=== PATIENT | male | born 1985 | race Caucasian/White ===

== ENCOUNTER 2020-06-22 20:31 | Emergency (ER) | payer OTHER ==
[~2020-06-22] VITALS: Ht 185.4 cm; Wt 74.8 kg
[2020-06-22] MEDS ORDERED: LANTUS SOL100 UNIT/1 SUB-Q (20:53)
[2020-06-22] MEDS ORDERED: APIDRA SOL100 UNIT/1 SUB-Q (20:53)
== END 2020-06-22 23:06 | disposition home or self-care (01) ==
LOC: ED 20:31
DX: K21.9 Gastro-esophageal reflux disease without esophagitis (principal); E10.9 Type 1 diabetes mellitus without complications; F17.200 Nicotine dependence, unspecified, uncomplicated
CPT/HCPCS: 80053; 85025; 96374; 99284-25; J7030

== ENCOUNTER 2021-05-14 02:12 | Emergency (ER) | payer OTHER ==
[~2021-05-14] VITALS: Ht 185.4 cm; Wt 69.9 kg
[~2021-05-14 02:12] MED LIST: APIDRA SOL100 UNIT/1 SUB-Q; LANTUS SOL100 UNIT/1 SUB-Q
--- NOTE | 2021-05-15 18:34 | EKG ---
[facility] [address] [place] [address] Signed Sinus tachycardia Acute pericarditis Abnormal ECG No previous ECGs available Confirmed by LETY CASTILLO DO ([id number]) on 05/15/2021 6:33:48 PM Electronically Signed By: LETY CASTILLO DO 05/15/21 1834 PATIENT NAME: ERICK SIMMONS AGUSTÍN Electrocardiogram DATE OF : 83 PHYSICIAN: LETY CASTILLO DO REPORT #: [id number] REPORT IS CONFIDENTIAL AND NOT TO BE RELEASED WITHOUT AUTHORIZATION
== END 2021-05-14 06:37 | disposition short-term general hospital (02) ==
LOC: ED 02:12
DX: A41.89 Other specified sepsis (principal); U07.1 COVID-19; J96.90 Respiratory failure, unspecified, unspecified whether with hypoxia or hypercapnia; R65.21 Severe sepsis with septic shock; J12.82 Pneumonia due to coronavirus disease 2019; I46.9 Cardiac arrest, cause unspecified; I95.9 Hypotension, unspecified; F15.10 Other stimulant abuse, uncomplicated; E10.9 Type 1 diabetes mellitus without complications; Z79.4 Long term (current) use of insulin; F17.200 Nicotine dependence, unspecified, uncomplicated; Z88.2 Allergy status to sulfonamides
CPT/HCPCS: 31500; 36415; 36600; 71045; 80053; 81001; 82010; 82803; 83605; 83880; 85025; 87040; 93005; 93010; 94002; 94644; 94660; 96368; 99285-25; J0171; J0248; J0330; J0456; J0696; J1815; J2704; J3010; J7030; J7050; J7060; U0003